=== PATIENT | male | born 1990 | race American Indian/Alaskan Native ===

== ENCOUNTER 2022-04-29 04:42 | Emergency (ER) | payer OTHER, MEDICAID ==
[2022-04-29] MEDS ORDERED: Cephalexin 500 MG Cap PO ONE (04:58)
[2022-04-29] MEDS ORDERED: Bacitracin Oint 1 GM U/D Packet TOP ONE (04:58)
[2022-04-29] MEDS ORDERED: Diphtheria,Pertussis(Acell),Tetanus Vaccine 0.5 ML Syringe IM ONE (04:59)
== END 2022-04-29 05:31 ==
LOC: DL.ED 04:42
DX: S81.811A Laceration without foreign body, right lower leg, initial encounter (principal); Z23 Encounter for immunization; V29.9XXA Motorcycle rider (driver) (passenger) injured in unspecified traffic accident, initial encounter; Y93.55 Activity, bike riding
CPT/HCPCS: 90471; 90715; 99283; A9270

== ENCOUNTER 2022-06-16 16:32 | Emergency (ER) | payer MEDICAID ==
[2022-06-16] MEDS: Pantoprazole 40 MG Vial IVPUSH ONE (17:08)
[2022-06-16] MEDS: Ondansetron 4 MG/2 ML SDV IV ONE (17:09)
[2022-06-16] MEDS: Sodium Chloride 0.9% 10 ML Syringe FLUSH PRN (17:09)
[2022-06-16] MEDS: MVI, Adult with Vitamin K 10 ML, Thiamine 100 MG, Folic Acid 1 MG in Lactated Ringers 1... IV ONE ×4 (17:11)
[2022-06-16 17:35] LABS: PTT,PARTIAL THROMBOPLSTIN TIME 23.2 SEC (22.0-34.0)
[2022-06-16 17:38] LABS: ANION GAP 16.9 mEq/L (7-13)
[2022-06-16 17:57] LABS: CORONAVIRUS COVID-19 NAA NEGATIVE (NEGATIVE); RESPIRATORY SYNCYTIAL VIR NAA NEGATIVE (NEGATIVE)
[2022-06-16 18:03] LABS: AMPHETAMINES,URINE NEGATIVE (NEGATIVE); BARBITURATES,URINE NEGATIVE (NEGATIVE); BENZODIAZEPINE,URINE NEGATIVE (NEGATIVE); MDMA (ECSTASY), URINE NEGATIVE (NEGATIVE); METHADONE,URINE NEGATIVE (NEGATIVE); METHAMPHETAMINES,URINE POSITIVE (NEGATIVE); OPIATES,URINE NEGATIVE (NEGATIVE); OXYCODONE,URINE NEGATIVE (NEGATIVE); PHENCYCLIDINE,URINE NEGATIVE (NEGATIVE); TCA,URINE NEGATIVE (NEGATIVE)
[2022-06-16] MEDS: Sodium Chloride 0.9% 1,000 ML IV ONE (18:36)
[2022-06-16] MEDS ORDERED: Sodium Chloride 0.9% 1,000 ML IV ONE (18:40)
== END 2022-06-16 18:50 | disposition left against medical advice (07) ==
LOC: DL.ED 16:32
DX: F10.129 Alcohol abuse with intoxication, unspecified (principal); Y90.8 Blood alcohol level of 240 mg/100 ml or more; S60.414A Abrasion of right ring finger, initial encounter; F15.10 Other stimulant abuse, uncomplicated; Z20.822 Contact with and (suspected) exposure to COVID-19
CPT/HCPCS: 0241U; 36415; 80053; 80143; 80179; 80305; 80307; 81001; 82150; 83690; 83735; 85025; 85610; 85730; 96365; 96375; 99284; C9113; J2405; J3411; J3490; J7030; J7120

== ENCOUNTER 2022-06-16 23:46 | Emergency (ER) | payer MEDICAID ==
[2022-06-16] MEDS ORDERED: Sodium Chloride 0.9% 1,000 ML IV ONE (23:52)
[2022-06-17 00:27] LABS: ANION GAP 18.3 mEq/L (7-13); CHLORIDE,CL 111 mmol/L (98-107); SODIUM,NA 150 mmol/L (136-145)
[2022-06-17 00:37] LABS: ACETAMINOPHEN 0 ug/mL (10-30 (Therapeutic)); ESTIMATED GFR 108 mL/min (>=60)
[2022-06-17 01:23] LABS: AMPHETAMINES,URINE NEGATIVE (NEGATIVE); BARBITURATES,URINE NEGATIVE (NEGATIVE); BENZODIAZEPINE,URINE NEGATIVE (NEGATIVE); MDMA (ECSTASY), URINE NEGATIVE (NEGATIVE); METHADONE,URINE NEGATIVE (NEGATIVE); METHAMPHETAMINES,URINE POSITIVE (NEGATIVE); OPIATES,URINE NEGATIVE (NEGATIVE); OXYCODONE,URINE NEGATIVE (NEGATIVE); PHENCYCLIDINE,URINE NEGATIVE (NEGATIVE); TCA,URINE NEGATIVE (NEGATIVE)
== END 2022-06-17 05:50 | disposition home or self-care (01) ==
LOC: DL.ED 23:46
DX: F10.10 Alcohol abuse, uncomplicated (principal); F15.10 Other stimulant abuse, uncomplicated; Y90.8 Blood alcohol level of 240 mg/100 ml or more
CPT/HCPCS: 36415; 80053; 80143; 80179; 80305; 80307; 83605; 83735; 85025; 96360; 99285; J7030

== ENCOUNTER 2022-07-13 20:46 | Emergency (ER) | payer MEDICAID ==
[2022-07-13 21:03] LABS: ANION GAP 14.4 mEq/L (7-13); CHLORIDE,CL 107 mmol/L (98-107); SODIUM,NA 145 mmol/L (136-145)
[2022-07-13 21:04] LABS: ESTIMATED GFR 123 mL/min (>=60)
[2022-07-13 21:38] LABS: AMPHETAMINES,URINE NEGATIVE (NEGATIVE); BARBITURATES,URINE NEGATIVE (NEGATIVE); BENZODIAZEPINE,URINE NEGATIVE (NEGATIVE); MDMA (ECSTASY), URINE NEGATIVE (NEGATIVE); METHADONE,URINE NEGATIVE (NEGATIVE); METHAMPHETAMINES,URINE NEGATIVE (NEGATIVE); OPIATES,URINE NEGATIVE (NEGATIVE); OXYCODONE,URINE NEGATIVE (NEGATIVE); PHENCYCLIDINE,URINE NEGATIVE (NEGATIVE); TCA,URINE NEGATIVE (NEGATIVE)
== END 2022-07-13 21:19 ==
LOC: DL.ED 20:46
DX: S00.83XA Contusion of other part of head, initial encounter (principal); F10.929 Alcohol use, unspecified with intoxication, unspecified; R40.1 Stupor; Y90.8 Blood alcohol level of 240 mg/100 ml or more; W18.09XA Striking against other object with subsequent fall, initial encounter
CPT/HCPCS: 36415; 80053; 80305-QW; 80307; 81001; 82150; 83690; 85025; 85610; 86850; 86900; 86901; 93005; 99285

== ENCOUNTER 2023-01-21 11:29 | Inpatient (IN) | payer MEDICAID ==
[2023-01-21] MEDS ORDERED: cefTRIAXone 2 GM Vial IVPUSH ONE (12:15)
[2023-01-21] MEDS ORDERED: Sodium Chloride 0.9% 1,000 ML IV ONE ×2 (12:15→12:16)
[2023-01-21] MEDS ORDERED: Sodium Chloride 0.9% 10 ML Syringe FLUSH PRN (12:15)
[2023-01-21] MEDS ORDERED: Azithromycin 500 MG in Sodium Chloride 0.9% 250 ML IV ONE (12:16)
[2023-01-21] MEDS ORDERED: Sodium Chloride 0.9% 500 ML IV SCH (12:30)
[2023-01-21 12:52] LABS: CHLORIDE,CL 93 mmol/L (98-107); SODIUM,NA 130 mmol/L (136-145)
[2023-01-21 13:11] LABS: ESTIMATED GFR 89 mL/min (>=60)
[2023-01-21] MEDS ORDERED: Iopamidol 755 Mg/ML 100 ML Bottle IVPUSH ONE (13:18)
[2023-01-21 13:59] LABS: AMPHETAMINES,URINE POSITIVE (NEGATIVE); BARBITURATES,URINE NEGATIVE (NEGATIVE); BENZODIAZEPINE,URINE NEGATIVE (NEGATIVE); MDMA (ECSTASY), URINE NEGATIVE (NEGATIVE); METHADONE,URINE NEGATIVE (NEGATIVE); METHAMPHETAMINES,URINE POSITIVE (NEGATIVE); OPIATES,URINE NEGATIVE (NEGATIVE); OXYCODONE,URINE NEGATIVE (NEGATIVE); PHENCYCLIDINE,URINE NEGATIVE (NEGATIVE); TCA,URINE NEGATIVE (NEGATIVE)
[2023-01-21] MEDS ORDERED: Acetaminophen 500 MG Tab PO ONE (14:48)
[2023-01-21] MEDS ORDERED: Ketorolac 30 MG/ML SDV IVPUSH ONE (14:48)
[2023-01-21] MEDS ORDERED: LORazepam 2 MG/ML SDV IVPUSH ONE (15:12)
[2023-01-21 15:29] LABS: CORONAVIRUS COVID-19 NAA NEGATIVE (NEGATIVE); RESPIRATORY SYNCYTIAL VIR NAA NEGATIVE (NEGATIVE)
[2023-01-21] MEDS ORDERED: oxyCODONE 5 MG Tab PO PRN (16:04)
[2023-01-21] MEDS ORDERED: Docusate Sodium 100 MG Cap PO PRN (16:04)
[2023-01-21] MEDS ORDERED: Morphine 2 MG/ML SYRINGE IVPUSH PRN (16:04)
[2023-01-21] MEDS ORDERED: Acetaminophen 325 MG Tab PO PRN (16:04)
[2023-01-21] MEDS ORDERED: Ondansetron 4 MG Tab.DIS PO PRN (16:04)
[2023-01-21] MEDS ORDERED: LORazepam 2 MG/ML SDV IV PRN (16:10)
[2023-01-21] MEDS: Sodium Chloride 0.9% 1,000 ML IV SCH (19:13)
[2023-01-21] MEDS: Thiamine 100 MG Tab PO SCH (20:15)
[2023-01-21] MEDS: Folic Acid 1 MG Tab PO SCH (20:15)
[2023-01-21] MEDS: Multivitamin, Childrens Tab.Chew PO SCH (20:15)
[2023-01-21] MEDS: Albuterol/Ipratropium 3.0-0.5 MG/3 ML Neb Soln NEB SCH (21:36)
[2023-01-21] MEDS ORDERED: LORazepam 1 MG Tab PO PRN (23:14)
[2023-01-21] MEDS ORDERED: LORazepam 0.5 MG Tab PO PRN (23:29)
[2023-01-22] MEDS: Albuterol/Ipratropium 3.0-0.5 MG/3 ML Neb Soln NEB SCH ×5 (00:02→18:15)
[2023-01-22] MEDS: Sodium Chloride 0.9% 1,000 ML IV SCH (03:08)
[2023-01-22] MEDS: LORazepam 1 MG Tab PO PRN ×4 (03:13→20:24)
[2023-01-22 06:25] LABS: ANION GAP 10.6 mEq/L (7-13)
[2023-01-22] MEDS: Nicotine 21 MG/24 Hr Patch TRDERM SCH (08:23)
[2023-01-22] MEDS: Enoxaparin 40 MG/0.4 ML Syringe SUBCUT SCH (08:24)
[2023-01-22] MEDS: cefTRIAXone 1 GM Vial IVPUSH SCH (12:18)
[2023-01-22] MEDS: Azithromycin 500 MG in Sodium Chloride 0.9% 250 ML IV SCH (12:21)
[2023-01-22] MEDS: Thiamine 100 MG Tab PO SCH (20:23)
[2023-01-22] MEDS: Folic Acid 1 MG Tab PO SCH (20:24)
[2023-01-22] MEDS: Multivitamin, Childrens Tab.Chew PO SCH (20:24)
[2023-01-22] MEDS ORDERED: guaiFENesin/Dextromethorphan 100-10 MG/5 ML Soln 5 ML Cup PO PRN (23:58)
[2023-01-23] MEDS: Albuterol/Ipratropium 3.0-0.5 MG/3 ML Neb Soln NEB SCH ×4 (00:17→18:29)
[2023-01-23 06:30] LABS: ANION GAP 13.7 mEq/L (7-13)
[2023-01-23] MEDS: Nicotine 21 MG/24 Hr Patch TRDERM SCH (08:44)
[2023-01-23] MEDS: Enoxaparin 40 MG/0.4 ML Syringe SUBCUT SCH (08:47)
[2023-01-23] MEDS: Azithromycin 500 MG in Sodium Chloride 0.9% 250 ML IV SCH (12:29)
[2023-01-23] MEDS: cefTRIAXone 1 GM Vial IVPUSH SCH (12:31)
[2023-01-23] MEDS: LORazepam 1 MG Tab PO PRN (12:39)
[2023-01-23] MEDS ORDERED: ALPRAZolam 0.5 MG Tab PO ONE (16:57)
[2023-01-23] MEDS: Folic Acid 1 MG Tab PO SCH (20:05)
[2023-01-23] MEDS: Multivitamin, Childrens Tab.Chew PO SCH (20:05)
[2023-01-23] MEDS: Thiamine 100 MG Tab PO SCH (20:05)
[2023-01-24] MEDS: Albuterol/Ipratropium 3.0-0.5 MG/3 ML Neb Soln NEB SCH ×3 (00:18→13:16)
[2023-01-24] MEDS: LORazepam 1 MG Tab PO PRN ×3 (00:18→12:34)
[2023-01-24 06:33] LABS: ANION GAP 13.9 mEq/L (7-13)
[2023-01-24] MEDS: Enoxaparin 40 MG/0.4 ML Syringe SUBCUT SCH (08:25)
[2023-01-24] MEDS: Nicotine 21 MG/24 Hr Patch TRDERM SCH (08:28)
[2023-01-24] MEDS ORDERED: Acetaminophen/Butalbital/Caffeine 325-50-40 MG Tab PO PRN (10:27)
[2023-01-24] MEDS: cefTRIAXone 1 GM Vial IVPUSH SCH (11:57)
[2023-01-24] MEDS: Azithromycin 500 MG in Sodium Chloride 0.9% 250 ML IV SCH (11:58)
[2023-01-24] MEDS ORDERED: Topiramate 25 MG Tab PO ONE (12:15)
[2023-01-24] MEDS ORDERED: QUEtiapine 25 MG Tab PO SCH (21:00)
[2023-01-24] MEDS ORDERED: Topiramate 25 MG Tab PO SCH (21:00)
== END 2023-01-24 13:53 | disposition home or self-care (01) | DRG 871 ==
LOC: DL.ED 11:29 → DL.MS 15:33
PROVIDERS: ADMIT Internal Medicine; ATTEND Internal Medicine
DX: A41.9 Sepsis, unspecified organism (principal); J18.9 Pneumonia, unspecified organism; E87.1 Hypo-osmolality and hyponatremia; F10.139 Alcohol abuse with withdrawal, unspecified; F41.9 Anxiety disorder, unspecified; F17.210 Nicotine dependence, cigarettes, uncomplicated; D64.9 Anemia, unspecified; R73.9 Hyperglycemia, unspecified; E87.8 Other disorders of electrolyte and fluid balance, not elsewhere classified; R65.20 Severe sepsis without septic shock; F15.10 Other stimulant abuse, uncomplicated; Z59.00 Homelessness unspecified; Z56.0 Unemployment, unspecified
CPT/HCPCS: 0241U; 36415; 71046; 71100-LT; 71275; 80048; 80053; 80305-QW; 80307; 81003; 83605; 85025; 86140; 87040; 93005; 93010; 94640; 99232; 99238; 99285; A9270-GY; J0456; J0696; J1650; J1885; J2060; J3490; J7030; J7040; J7050; J7620-GY; Q9967

== ENCOUNTER 2023-02-09 11:05 | Emergency (ER) | payer MEDICAID ==
[2023-02-09] MEDS ORDERED: Sodium Chloride 0.9% 10 ML Syringe FLUSH PRN (11:20)
[2023-02-09] MEDS ORDERED: Ondansetron 4 MG/2 ML SDV IVPUSH ONE (11:20)
[2023-02-09] MEDS ORDERED: MVI, Adult with Vitamin K 10 ML, Thiamine 100 MG, Folic Acid 1 MG in Lactated Ringers 1... IV ONE ×4 (11:20)
[2023-02-09] MEDS ORDERED: LORazepam 2 MG/ML SDV IVPUSH ONE (11:30)
[2023-02-09 11:34] LABS: BASOPHILS PERCENT AUTO 1.4 % (0.0-1.0); EOSINOPHILS PERCENT AUTO 4.1 % (1.0-3.0); HEMATOCRIT 43.8 % (40.0-54.0); LYMPHOCYTES PERCENT AUTO 41.4 % (20.5-50.1); MEAN CORPUSCULAR HEMOGLOBIN 31.7 pg (27.0-34.0); MEAN CORPUSCULAR HGB CONC 34.2 g/dL (33.0-35.0); MEAN CORPUSCULAR VOLUME 92.6 fL (80-100); MONOCYTES PERCENT AUTO 9.5 % (2-8); NEUTROPHILS PERCENT AUTO 43.6 % (42.2-75.2); PLATELET COUNT,PLT 262 10^3/uL (150-450); RED BLOOD CELL COUNT 4.73 10^6/uL (4.6-6.2); WHITE BLOOD CELL COUNT,WBC 4.4 10^3/uL (5.0-10.0)
[2023-02-09 11:36] LABS: APPEARANCE,URINE CLEAR (CLEAR); BILIRUBIN,URINE NEGATIVE (NEGATIVE); COLOR,URINE YELLOW (YELLOW); GLUCOSE,URINE NEGATIVE (NEGATIVE); KETONES,URINE NEGATIVE (NEGATIVE); LEUKOCYTE ESTERASE,URINE NEGATIVE (NEGATIVE); NITRITE,URINE NEGATIVE (NEGATIVE); OCCULT BLOOD,URINE NEGATIVE (NEGATIVE); PROTEIN,URINE NEGATIVE (NEGATIVE)
[2023-02-09 11:41] LABS: AMPHETAMINES,URINE POSITIVE (NEGATIVE); BARBITURATES,URINE NEGATIVE (NEGATIVE); BENZODIAZEPINE,URINE NEGATIVE (NEGATIVE); MDMA (ECSTASY), URINE NEGATIVE (NEGATIVE); METHADONE,URINE NEGATIVE (NEGATIVE); METHAMPHETAMINES,URINE POSITIVE (NEGATIVE); OPIATES,URINE NEGATIVE (NEGATIVE); OXYCODONE,URINE NEGATIVE (NEGATIVE); PHENCYCLIDINE,URINE NEGATIVE (NEGATIVE); TCA,URINE NEGATIVE (NEGATIVE)
[2023-02-09 11:57] LABS: ALBUMIN 3.8 g/dL (3.4-5.0); ANION GAP 14.9 mEq/L (7-13); BILIRUBIN TOTAL 0.4 mg/dL (0.2-1.0); BUN/CREATININE RATIO 19.8 (No establ ref range); CALCIUM 8.5 mg/dL (8.5-10.1); CREATININE 0.81 mg/dL (0.70-1.30); EST CRCL DRUG DOSING (CG) 129.71 mL/min; MAGNESIUM 1.9 mg/dL (1.8-2.4); POTASSIUM,K 3.9 mmol/L (3.5-5.1); PROTEIN TOTAL,TP 7.6 g/dL (6.4-8.2)
== END 2023-02-09 12:39 ==
LOC: DL.ED 11:05
DX: F10.129 Alcohol abuse with intoxication, unspecified (principal); F15.10 Other stimulant abuse, uncomplicated; R74.8 Abnormal levels of other serum enzymes; J45.909 Unspecified asthma, uncomplicated; Y90.5 Blood alcohol level of 100-119 mg/100 ml
CPT/HCPCS: 36415; 80053; 80305; 80307; 81003; 83735; 85025; 96365; 96375; 99284; J2060; J2405; J3411; J7120; J3490

== ENCOUNTER 2023-04-16 07:04 | Emergency (ER) | payer BC, MEDICAID ==
[2023-04-16] MEDS ORDERED: Sodium Chloride 0.9% 10 ML Syringe FLUSH PRN (07:26)
[2023-04-16] MEDS ORDERED: Lidocaine 1% 30 ML SDV INJECT ONE (07:27)
[2023-04-16] MEDS ORDERED: diphenhydrAMINE 50 MG/ML SDV IVPUSH ONE (07:28)
[2023-04-16] MEDS ORDERED: Ondansetron 4 MG/2 ML SDV IV ONE (07:28)
[2023-04-16] MEDS ORDERED: Sodium Chloride 0.9% 1,000 ML IV ONE (07:28)
[2023-04-16] MEDS ORDERED: HYDROmorphone 1 MG/ML Syringe IVPUSH ONE (07:29)
[2023-04-16] MEDS ORDERED: Clindamycin in 0.9 % Sod Chlor 900 MG in Premix Bag 1 BAG IV ONE ×2 (07:32)
[2023-04-16 07:46] LABS: BASOPHILS PERCENT AUTO 0.5 % (0.0-1.0); EOSINOPHILS PERCENT AUTO 1.3 % (1.0-3.0); HEMOGLOBIN 13.7 g/dL (14.0-18.0); LYMPHOCYTES PERCENT AUTO 22.7 % (20.5-50.1); MEAN CORPUSCULAR HEMOGLOBIN 32.4 pg (27.0-34.0); MEAN CORPUSCULAR HGB CONC 33.4 g/dL (33.0-35.0); MEAN CORPUSCULAR VOLUME 96.9 fL (80-100); MONOCYTES PERCENT AUTO 8.8 % (2-8); NEUTROPHILS PERCENT AUTO 66.7 % (42.2-75.2); PLATELET COUNT,PLT 274 10^3/uL (150-450); RED BLOOD CELL COUNT 4.23 10^6/uL (4.6-6.2); WHITE BLOOD CELL COUNT,WBC 10.9 10^3/uL (5.0-10.0)
[2023-04-16 08:06] LABS: ALBUMIN 3.3 g/dL (3.4-5.0); ANION GAP 14.7 mEq/L (7-13); BILIRUBIN TOTAL 0.2 mg/dL (0.2-1.0); BUN/CREATININE RATIO 12.6 (No establ ref range); C-REACTIVE PROTEIN 7.7 mg/dL (0.0-0.9); CALCIUM 8.7 mg/dL (8.5-10.1); CREATININE 0.95 mg/dL (0.70-1.30); EST CRCL DRUG DOSING (CG) 103.4 mL/min; POTASSIUM,K 3.7 mmol/L (3.5-5.1); PROTEIN TOTAL,TP 7.9 g/dL (6.4-8.2)
[2023-04-16 08:08] LABS: A/G RATIO 0.72
[2023-04-16 08:14] LABS: LACTIC ACID 2.2 mmol/L (0.4-2.0)
[2023-04-16] MEDS ORDERED: Take Home: Acetaminophen/HYDROcodone 325-5 MG, 5 Tab Pack PO ONE (09:21)
[2023-04-16] MEDS ORDERED: Take Home: Clindamycin HCl 150 MG, 12 Cap Pack PO ONE (09:21)
[2023-04-16] MEDS ORDERED: Take Home: Doxycycline 100 MG Cap, 4 Cap Pack PO ONE (09:21)
== END 2023-04-16 11:05 | disposition home or self-care (01) ==
LOC: DL.ED 07:04
DX: L03.317 Cellulitis of buttock (principal); L02.31 Cutaneous abscess of buttock; J45.909 Unspecified asthma, uncomplicated
CPT/HCPCS: 10061; 36415; 80053; 80307; 83605; 85025; 86140; 87040; 87070; 87077; 87186; 96365; 96366; 96367; 96375; 99283; A9270; J1170; J1200; J2405; J3370; J3490; J7030; J7040

== ENCOUNTER 2023-08-06 15:20 | Emergency (ER) | payer MEDICAID ==
[2023-08-06] MEDS ORDERED: Dexamethasone 4 MG/ML SDV IVPUSH ONE (15:47)
[2023-08-06] MEDS ORDERED: Clindamycin Phosphate in D5W 600 MG in Premix Bag 1 BAG IV ONE ×2 (15:47)
[2023-08-06] MEDS ORDERED: Sodium Chloride 0.9% 10 ML Syringe FLUSH PRN (15:47)
[2023-08-06 16:34] LABS: BASOPHILS PERCENT AUTO 0.1 % (0.0-1.0); EOSINOPHILS PERCENT AUTO 4.1 % (1.0-3.0); HEMATOCRIT 48.4 % (40.0-54.0); HEMOGLOBIN 16.7 g/dL (14.0-18.0); LYMPHOCYTES PERCENT AUTO 14.9 % (20.5-50.1); MEAN CORPUSCULAR HEMOGLOBIN 31.6 pg (27.0-34.0); MEAN CORPUSCULAR HGB CONC 34.5 g/dL (33.0-35.0); MEAN CORPUSCULAR VOLUME 91.5 fL (80-100); MONOCYTES PERCENT AUTO 6.3 % (2-8); NEUTROPHILS PERCENT AUTO 74.6 % (42.2-75.2); PLATELET COUNT,PLT 259 10^3/uL (150-450); RED BLOOD CELL COUNT 5.29 10^6/uL (4.6-6.2); WHITE BLOOD CELL COUNT,WBC 11.5 10^3/uL (5.0-10.0)
[2023-08-06 16:56] LABS: ALBUMIN 2.9 g/dL (3.4-5.0); ANION GAP 13.6 mEq/L (7-13); BILIRUBIN TOTAL 1.1 mg/dL (0.2-1.0); BUN/CREATININE RATIO 12.1 (No establ ref range); CREATININE 0.99 mg/dL (0.70-1.30); EST CRCL DRUG DOSING (CG) 105.14 mL/min; POTASSIUM,K 3.6 mmol/L (3.5-5.1); PROTEIN TOTAL,TP 6.3 g/dL (6.4-8.2)
[2023-08-06 16:57] LABS: A/G RATIO 0.85
== END 2023-08-06 17:06 | disposition left against medical advice (07) ==
LOC: DL.ED 15:20
DX: L03.317 Cellulitis of buttock (principal); L03.115 Cellulitis of right lower limb; L03.116 Cellulitis of left lower limb
CPT/HCPCS: 36415; 80053; 83605; 85025; 96365; 96375; 99283; 99283-25; J1100; J3490

== ENCOUNTER 2023-08-12 17:00 | Emergency (ER) | payer MEDICAID ==
[2023-08-12 18:36] LABS: BASOPHILS PERCENT AUTO 0.4 % (0.0-1.0); EOSINOPHILS PERCENT AUTO 1.2 % (1.0-3.0); HEMATOCRIT 42.8 % (40.0-54.0); HEMOGLOBIN 14.6 g/dL (14.0-18.0); LYMPHOCYTES PERCENT AUTO 31.7 % (20.5-50.1); MEAN CORPUSCULAR HEMOGLOBIN 31.6 pg (27.0-34.0); MEAN CORPUSCULAR HGB CONC 34.1 g/dL (33.0-35.0); MEAN CORPUSCULAR VOLUME 92.6 fL (80-100); MONOCYTES PERCENT AUTO 6.2 % (2-8); NEUTROPHILS PERCENT AUTO 60.5 % (42.2-75.2); PLATELET COUNT,PLT 219 10^3/uL (150-450); RED BLOOD CELL COUNT 4.62 10^6/uL (4.6-6.2); WHITE BLOOD CELL COUNT,WBC 7.3 10^3/uL (5.0-10.0)
[2023-08-12 18:40] LABS: APPEARANCE,URINE CLEAR (CLEAR); BILIRUBIN,URINE NEGATIVE (NEGATIVE); COLOR,URINE YELLOW (YELLOW); GLUCOSE,URINE NEGATIVE (NEGATIVE); KETONES,URINE NEGATIVE (NEGATIVE); LEUKOCYTE ESTERASE,URINE NEGATIVE (NEGATIVE); NITRITE,URINE NEGATIVE (NEGATIVE); OCCULT BLOOD,URINE NEGATIVE (NEGATIVE); PROTEIN,URINE NEGATIVE (NEGATIVE); UROBILINOGEN,URINE 0.2 mg/dL (0.2-1.0)
[2023-08-12 18:47] LABS: AMPHETAMINES,URINE NEGATIVE (NEGATIVE); BARBITURATES,URINE NEGATIVE (NEGATIVE); BENZODIAZEPINE,URINE NEGATIVE (NEGATIVE); MDMA (ECSTASY), URINE NEGATIVE (NEGATIVE); METHADONE,URINE NEGATIVE (NEGATIVE); METHAMPHETAMINES,URINE NEGATIVE (NEGATIVE); OPIATES,URINE NEGATIVE (NEGATIVE); OXYCODONE,URINE NEGATIVE (NEGATIVE); PHENCYCLIDINE,URINE NEGATIVE (NEGATIVE); TCA,URINE NEGATIVE (NEGATIVE)
[2023-08-12 18:55] LABS: ALBUMIN 3.1 g/dL (3.4-5.0); BILIRUBIN TOTAL 0.2 mg/dL (0.2-1.0); BUN/CREATININE RATIO 10.3 (No establ ref range); CALCIUM 7.8 mg/dL (8.5-10.1); CREATININE 0.78 mg/dL (0.70-1.30); EST CRCL DRUG DOSING (CG) 126.71 mL/min
[2023-08-12 18:58] LABS: A/G RATIO 0.79
== END 2023-08-12 20:23 | disposition left against medical advice (07) ==
LOC: DL.ED 17:00
DX: S80.01XA Contusion of right knee, initial encounter (principal); S80.02XA Contusion of left knee, initial encounter; S90.812A Abrasion, left foot, initial encounter; S90.811A Abrasion, right foot, initial encounter; J45.909 Unspecified asthma, uncomplicated
CPT/HCPCS: 36415; 80053; 80305-QW; 80307; 81003; 85025; 99282; 99284

== ENCOUNTER 2023-08-18 15:59 | Emergency (ER) | payer MEDICAID, OTHER ==
[2023-08-18 16:35] LABS: AMPHETAMINES,URINE NEGATIVE (NEGATIVE); BARBITURATES,URINE NEGATIVE (NEGATIVE); BENZODIAZEPINE,URINE NEGATIVE (NEGATIVE); MDMA (ECSTASY), URINE NEGATIVE (NEGATIVE); METHADONE,URINE NEGATIVE (NEGATIVE); METHAMPHETAMINES,URINE NEGATIVE (NEGATIVE); OPIATES,URINE NEGATIVE (NEGATIVE); OXYCODONE,URINE NEGATIVE (NEGATIVE); PHENCYCLIDINE,URINE NEGATIVE (NEGATIVE); TCA,URINE NEGATIVE (NEGATIVE)
[2023-08-18] MEDS ORDERED: Sodium Chloride 0.9% 10 ML Syringe FLUSH PRN (16:44)
[2023-08-18] MEDS ORDERED: Thiamine 100 MG in Sodium Chloride 0.9% 100 ML IV ONE (16:46)
[2023-08-18] MEDS ORDERED: Sodium Chloride 0.9% 1,000 ML IV ONE ×2 (16:46)
== END 2023-08-18 19:45 ==
LOC: DL.ED 15:59
DX: F10.929 Alcohol use, unspecified with intoxication, unspecified (principal)
CPT/HCPCS: 36415; 80305-QW; 80307; 96365; 99283; 99284-25; J3411; J3490; J7030

== ENCOUNTER 2024-05-25 18:49 | Emergency (ER) | payer MEDICAID ==
[2024-05-25 19:33] LABS: BASOPHILS PERCENT AUTO 0.3 % (0.0-1.0); HEMATOCRIT 41.6 % (40.0-54.0); LYMPHOCYTES PERCENT AUTO 18.3 % (20.5-50.1); MEAN CORPUSCULAR HGB CONC 33.7 g/dL (33.0-35.0); MEAN CORPUSCULAR VOLUME 95.2 fL (80-100); MONOCYTES PERCENT AUTO 9.6 % (2-8); NEUTROPHILS PERCENT AUTO 70.8 % (42.2-75.2); PLATELET COUNT,PLT 227 10^3/uL (150-450); RED BLOOD CELL COUNT 4.37 10^6/uL (4.6-6.2); WHITE BLOOD CELL COUNT,WBC 7.8 10^3/uL (5.0-10.0)
[2024-05-25 20:00] LABS: LACTIC ACID 1.3 mmol/L (0.4-2.0)
[2024-05-25] MEDS: Ketorolac 30 MG/ML SDV IVPUSH ONE (20:01)
[2024-05-25] MEDS: Bacitracin/Neomycin/Polymyxin B Oint 28.4 GM Tube TOP ONE (20:03)
[2024-05-25 20:07] LABS: A/G RATIO 0.65; ANION GAP 13.8 mEq/L (7-13); BILIRUBIN TOTAL 0.2 mg/dL (0.2-1.0); BUN/CREATININE RATIO 19.8 (No establ ref range); CALCIUM 8.6 mg/dL (8.5-10.1); CREATININE 0.91 mg/dL (0.70-1.30); EST CRCL DRUG DOSING (CG) 113.3 mL/min; POTASSIUM,K 3.8 mmol/L (3.5-5.1); PROTEIN TOTAL,TP 7.6 g/dL (6.4-8.2)
[2024-05-25] MEDS: cefTRIAXone 1 GM Vial IVPUSH ONE (20:30)
== END 2024-05-25 21:02 | disposition home or self-care (01) ==
LOC: DL.ED 18:49
DX: L03.116 Cellulitis of left lower limb (principal); R94.5 Abnormal results of liver function studies; J45.909 Unspecified asthma, uncomplicated; F17.210 Nicotine dependence, cigarettes, uncomplicated
CPT/HCPCS: 36415; 73630; 80053; 83605; 85025; 87070; 96374; 96375; 99283; A9270; J0696; J1885; 87077; 87186

== ENCOUNTER 2024-06-21 16:38 | Emergency (ER) | payer MEDICAID ==
[~2024-06-21 16:38] MED LIST: Sodium Chloride 0.9% 10 ML Syringe FLUSH PRN
[2024-06-21] MEDS: Ketamine 500 mg/10 ML MDV IV ONE (17:04)
[2024-06-21 17:09] LABS: BASOPHILS PERCENT AUTO 0.9 % (0.0-1.0); EOSINOPHILS PERCENT AUTO 0.7 % (1.0-3.0); HEMATOCRIT 40.5 % (40.0-54.0); HEMOGLOBIN 13.5 g/dL (14.0-18.0); LYMPHOCYTES PERCENT AUTO 24.3 % (20.5-50.1); MEAN CORPUSCULAR HEMOGLOBIN 32.3 pg (27.0-34.0); MEAN CORPUSCULAR HGB CONC 33.3 g/dL (33.0-35.0); MEAN CORPUSCULAR VOLUME 96.9 fL (80-100); MONOCYTES PERCENT AUTO 4.8 % (2-8); NEUTROPHILS PERCENT AUTO 69.3 % (42.2-75.2); PLATELET COUNT,PLT 227 10^3/uL (150-450); RED BLOOD CELL COUNT 4.18 10^6/uL (4.6-6.2); WHITE BLOOD CELL COUNT,WBC 5.4 10^3/uL (5.0-10.0)
[2024-06-21] MEDS: Ketamine 500 mg/10 ML MDV ONE (17:16)
[2024-06-21 18:04] LABS: ALBUMIN 3.2 g/dL (3.4-5.0); ANION GAP 13.6 mEq/L (7-13); BILIRUBIN TOTAL 0.2 mg/dL (0.2-1.0); BUN/CREATININE RATIO 12.6 (No establ ref range); CALCIUM 7.9 mg/dL (8.5-10.1); CREATININE 0.87 mg/dL (0.70-1.30); EST CRCL DRUG DOSING (CG) 118.51 mL/min; POTASSIUM,K 3.6 mmol/L (3.5-5.1); PROTEIN TOTAL,TP 7.2 g/dL (6.4-8.2)
[2024-06-21 18:06] LABS: A/G RATIO 0.8
== END 2024-06-21 22:41 | disposition home or self-care (01) ==
LOC: DL.ED 16:38
DX: F10.929 Alcohol use, unspecified with intoxication, unspecified (principal)
CPT/HCPCS: 36415; 70450; 72125; 80053; 80307; 85025; 96374; 99283; 99285; J3490

== ENCOUNTER 2024-06-27 09:44 | Emergency (ER) | payer MEDICAID ==
[2024-06-27] MEDS ORDERED: Sodium Chloride 0.9% 10 ML Syringe FLUSH PRN (10:26)
[2024-06-27] MEDS: LORazepam 2 MG/ML SDV IVPUSH ONE ×3 (10:38→11:06)
[2024-06-27 10:40] LABS: BASOPHILS PERCENT AUTO 0.9 % (0.0-1.0); EOSINOPHILS PERCENT AUTO 1.9 % (1.0-3.0); HEMATOCRIT 40.2 % (40.0-54.0); HEMOGLOBIN 13.3 g/dL (14.0-18.0); LYMPHOCYTES PERCENT AUTO 42.5 % (20.5-50.1); MEAN CORPUSCULAR HEMOGLOBIN 32.6 pg (27.0-34.0); MEAN CORPUSCULAR HGB CONC 33.1 g/dL (33.0-35.0); MEAN CORPUSCULAR VOLUME 98.5 fL (80-100); MONOCYTES PERCENT AUTO 11.9 % (2-8); NEUTROPHILS PERCENT AUTO 42.8 % (42.2-75.2); PLATELET COUNT,PLT 195 10^3/uL (150-450); RED BLOOD CELL COUNT 4.08 10^6/uL (4.6-6.2); WHITE BLOOD CELL COUNT,WBC 6.4 10^3/uL (5.0-10.0)
[2024-06-27 10:51] LABS: ALBUMIN 3.1 g/dL (3.4-5.0); ANION GAP 15.7 mEq/L (7-13); BILIRUBIN TOTAL 0.3 mg/dL (0.2-1.0); BUN/CREATININE RATIO 13.3 (No establ ref range); CALCIUM 7.6 mg/dL (8.5-10.1); CREATININE 0.75 mg/dL (0.70-1.30); MAGNESIUM 1.8 mg/dL (1.8-2.4); POTASSIUM,K 3.7 mmol/L (3.5-5.1); PROTEIN TOTAL,TP 7.1 g/dL (6.4-8.2)
[2024-06-27 11:02] LABS: INR 0.9 (0.9-1.2); PROTHROMBIN TIME 8.9 SEC (9.0-12.0); PTT,PARTIAL THROMBOPLSTIN TIME 23.4 SEC (22.0-34.0)
[2024-06-27 11:04] LABS: APPEARANCE,URINE CLEAR (CLEAR); BILIRUBIN,URINE NEGATIVE (NEGATIVE); COLOR,URINE YELLOW (YELLOW); GLUCOSE,URINE NEGATIVE (NEGATIVE); KETONES,URINE NEGATIVE (NEGATIVE); LEUKOCYTE ESTERASE,URINE NEGATIVE (NEGATIVE); NITRITE,URINE NEGATIVE (NEGATIVE); OCCULT BLOOD,URINE NEGATIVE (NEGATIVE); PH,URINE 5.5 (5.0-9.0); PROTEIN,URINE NEGATIVE (NEGATIVE); UROBILINOGEN,URINE 0.2 mg/dL (0.2-1.0)
[2024-06-27 11:08] LABS: MDMA (ECSTASY), URINE NEGATIVE (NEGATIVE); METHADONE,URINE NEGATIVE (NEGATIVE); METHAMPHETAMINES,URINE NEGATIVE (NEGATIVE); OPIATES,URINE NEGATIVE (NEGATIVE)
[2024-06-27 11:09] LABS: A/G RATIO 0.78
[2024-06-27 11:09] LABS: AMPHETAMINES,URINE NEGATIVE (NEGATIVE); BARBITURATES,URINE NEGATIVE (NEGATIVE); BENZODIAZEPINE,URINE NEGATIVE (NEGATIVE); OXYCODONE,URINE NEGATIVE (NEGATIVE); PHENCYCLIDINE,URINE NEGATIVE (NEGATIVE); TCA,URINE NEGATIVE (NEGATIVE)
[2024-06-27] MEDS: Midazolam 1 MG/ML 2 ML SDV IVPUSH ONE (11:14)
[2024-06-27] MEDS ORDERED: Midazolam 1 MG/ML 2 ML SDV ONE (11:15)
[2024-06-27] MEDS: propofoL 100 ML IV SCH (11:35)
[2024-06-27] MEDS: fentaNYL 100 MCG/2 ML SDV IVPUSH ONE (11:40)
[2024-06-27] MEDS: Sodium Chloride 0.9% 1,000 ML IV ONE (11:47)
[2024-06-27] MEDS: Midazolam 1 MG/ML 2 ML SDV ONE (12:03)
[2024-06-27] MEDS: fentaNYL 100 MCG/2 ML SDV ONE (14:23)
[2024-06-27] MEDS: LORazepam 2 MG/ML SDV ONE (18:39)
== END 2024-06-27 15:40 ==
LOC: DL.ED 09:44
DX: S02.2XXA Fracture of nasal bones, initial encounter for closed fracture (principal); S09.93XA Unspecified injury of face, initial encounter; R40.1 Stupor; H11.32 Conjunctival hemorrhage, left eye; F10.929 Alcohol use, unspecified with intoxication, unspecified; W50.1XXA Accidental kick by another person, initial encounter
CPT/HCPCS: 31500; 36415; 51702; 70450; 70486; 71045; 72125; 80053; 80305-QW; 80307; 81003; 83690; 83735; 85025; 85610; 85730; 96365; 96366; 96368; 96375; 96376; 99285; 99285-25; J2060; J2250; J2704; J3010; J7030

== ENCOUNTER 2024-07-12 01:09 | Emergency (ER) | payer MEDICAID, OTHER ==
[2024-07-12] MEDS: Gentamicin 0.3% Ophth Soln 5 ML Bottle EYEBOTH ONE (00:25)
[2024-07-12] MEDS ORDERED: Acetaminophen 500 MG Tab PO ONE (01:10)
== END 2024-07-12 01:16 | disposition home or self-care (01) ==
LOC: DL.ED 01:09
DX: S00.11XA Contusion of right eyelid and periocular area, initial encounter (principal); J45.909 Unspecified asthma, uncomplicated; F17.210 Nicotine dependence, cigarettes, uncomplicated; Z86.16 Personal history of COVID-19; W22.8XXA Striking against or struck by other objects, initial encounter
CPT/HCPCS: 70450; 70486; 99284; A9270

== ENCOUNTER 2024-07-24 14:46 | Emergency (ER) | payer MEDICAID, OTHER | END 2024-07-24 14:53 | LOC: DL.ED 14:46 | DX: F10.90 Alcohol use, unspecified, uncomplicated (principal); J45.909 Unspecified asthma, uncomplicated | CPT/HCPCS: 99284 ==

== ENCOUNTER 2024-08-02 18:56 | Emergency (ER) | payer MEDICAID | END 2024-08-02 19:11 | LOC: DL.ED 18:56 | DX: F10.920 Alcohol use, unspecified with intoxication, uncomplicated (principal); J45.909 Unspecified asthma, uncomplicated | CPT/HCPCS: 99282; 99283 ==

== ENCOUNTER 2024-10-23 22:07 | Emergency (ER) | payer MEDICAID ==
[2024-10-23] MEDS: Ketorolac 30 MG/ML SDV IM ONE (22:36)
[2024-10-23 22:48] LABS: BASOPHILS PERCENT AUTO 0.4 % (0.0-1.0); EOSINOPHILS PERCENT AUTO 0.9 % (1.0-3.0); HEMATOCRIT 39.6 % (40.0-54.0); HEMOGLOBIN 13.4 g/dL (14.0-18.0); LYMPHOCYTES PERCENT AUTO 37.2 % (20.5-50.1); MEAN CORPUSCULAR HEMOGLOBIN 30.7 pg (27.0-34.0); MEAN CORPUSCULAR HGB CONC 33.8 g/dL (33.0-35.0); MEAN CORPUSCULAR VOLUME 90.6 fL (80-100); MONOCYTES PERCENT AUTO 5.9 % (2-8); NEUTROPHILS PERCENT AUTO 55.6 % (42.2-75.2); PLATELET COUNT,PLT 233 10^3/uL (150-450); RED BLOOD CELL COUNT 4.37 10^6/uL (4.6-6.2); WHITE BLOOD CELL COUNT,WBC 6.8 10^3/uL (5.0-10.0)
[2024-10-23 23:10] LABS: A/G RATIO 0.9; ALBUMIN 3.4 g/dL (3.4-5.0); ANION GAP 17.5 mEq/L (7-13); BILIRUBIN TOTAL 0.2 mg/dL (0.2-1.0); BUN/CREATININE RATIO 12.4 (No establ ref range); CALCIUM 8.5 mg/dL (8.5-10.1); CREATININE 0.89 mg/dL (0.70-1.30); EST CRCL DRUG DOSING (CG) 119.62 mL/min; MAGNESIUM 1.8 mg/dL (1.8-2.4); POTASSIUM,K 3.5 mmol/L (3.5-5.1); PROTEIN TOTAL,TP 7.1 g/dL (6.4-8.2)
[2024-10-23 23:15] LABS: AMPHETAMINES,URINE NEGATIVE (NEGATIVE); APPEARANCE,URINE CLEAR (CLEAR); BARBITURATES,URINE NEGATIVE (NEGATIVE); BENZODIAZEPINE,URINE NEGATIVE (NEGATIVE); BILIRUBIN,URINE NEGATIVE (NEGATIVE); COLOR,URINE YELLOW (YELLOW); GLUCOSE,URINE 100 (NEGATIVE); KETONES,URINE TRACE (NEGATIVE); LEUKOCYTE ESTERASE,URINE NEGATIVE (NEGATIVE); MDMA (ECSTASY), URINE NEGATIVE (NEGATIVE); METHADONE,URINE NEGATIVE (NEGATIVE); METHAMPHETAMINES,URINE NEGATIVE (NEGATIVE); NITRITE,URINE NEGATIVE (NEGATIVE); OCCULT BLOOD,URINE NEGATIVE (NEGATIVE); OPIATES,URINE NEGATIVE (NEGATIVE); OXYCODONE,URINE NEGATIVE (NEGATIVE); PHENCYCLIDINE,URINE NEGATIVE (NEGATIVE); PROTEIN,URINE TRACE (NEGATIVE); TCA,URINE NEGATIVE (NEGATIVE); UROBILINOGEN,URINE 0.2 mg/dL (0.2-1.0)
[2024-10-23] MEDS ORDERED: Sodium Chloride 0.9% 1,000 ML IV ONE (23:21)
[2024-10-23 23:47] LABS: BACTERIA,URINE FEW /HPF (0-FEW/HPF); EPITHELIAL CELLS,URINE FEW /HPF (NOT SEEN); HYALINE CASTS,URINE RARE; MUCUS,URINE MODERATE /LPF (NOT SEEN); WBC,URINE 0-5 /HPF (0-5/HPF)
[2024-10-23 23:56] LABS: INR 0.9 (0.9-1.2); PROTHROMBIN TIME 9.2 SEC (9.0-12.0)
== END 2024-10-23 23:35 | disposition left against medical advice (07) ==
LOC: DL.ED 22:07
DX: T33.821A Superficial frostbite of right foot, initial encounter (principal); E87.0 Hyperosmolality and hypernatremia; F10.10 Alcohol abuse, uncomplicated; R94.5 Abnormal results of liver function studies; I10 Essential (primary) hypertension; J45.909 Unspecified asthma, uncomplicated; F17.210 Nicotine dependence, cigarettes, uncomplicated; X31.XXXA Exposure to excessive natural cold, initial encounter
CPT/HCPCS: 36415; 80053; 80305; 81001; 82550; 83735; 85025; 85610; 96372; 99283; J1885; 99284

== ENCOUNTER 2024-10-24 19:37 | Emergency (ER) | payer MEDICAID, OTHER | END 2024-10-24 19:54 | disposition home or self-care (01) | LOC: DL.ED 19:37 | DX: F10.129 Alcohol abuse with intoxication, unspecified (principal); T33.821A Superficial frostbite of right foot, initial encounter; Y90.9 Presence of alcohol in blood, level not specified | CPT/HCPCS: 99284 ==

== ENCOUNTER 2024-12-16 10:26 | Emergency (ER) | payer MEDICAID, OTHER | END 2024-12-16 10:54 | disposition home or self-care (01) | LOC: DL.ED 10:26 | DX: Z02.89 Encounter for other administrative examinations (principal); J45.909 Unspecified asthma, uncomplicated | CPT/HCPCS: 99283 ==

== ENCOUNTER 2025-01-03 09:29 | Emergency (ER) | payer MEDICAID ==
[2025-01-03] MEDS: Acetaminophen/HYDROcodone 325-5 MG Tab PO ONE (10:00)
[2025-01-03] MEDS: Ketorolac 30 MG/ML SDV IVPUSH ONE (10:00)
[2025-01-03 10:16] LABS: BASOPHILS PERCENT AUTO 0.3 % (0.0-1.0); HEMOGLOBIN 14.1 g/dL (14.0-18.0); LYMPHOCYTES PERCENT AUTO 14.6 % (20.5-50.1); MEAN CORPUSCULAR HEMOGLOBIN 31.6 pg (27.0-34.0); MEAN CORPUSCULAR HGB CONC 32.8 g/dL (33.0-35.0); MEAN CORPUSCULAR VOLUME 96.4 fL (80-100); MONOCYTES PERCENT AUTO 9.1 % (2-8); PLATELET COUNT,PLT 258 10^3/uL (150-450); RED BLOOD CELL COUNT 4.46 10^6/uL (4.6-6.2); WHITE BLOOD CELL COUNT,WBC 11.4 10^3/uL (5.0-10.0)
[2025-01-03 10:39] LABS: A/G RATIO 0.9; ALBUMIN 3.5 g/dL (3.4-5.0); ANION GAP 12.8 mEq/L (7-13); BILIRUBIN TOTAL 0.4 mg/dL (0.2-1.0); BUN/CREATININE RATIO 12.6 (No establ ref range); C-REACTIVE PROTEIN 6.81 ng/dL (<=0.50); CALCIUM 8.8 mg/dL (8.5-10.1); CREATININE 0.95 mg/dL (0.70-1.30); EST CRCL DRUG DOSING (CG) 108.53 mL/min; POTASSIUM,K 3.8 mmol/L (3.5-5.1); PROTEIN TOTAL,TP 7.6 g/dL (6.4-8.2)
== END 2025-01-03 11:02 | disposition home or self-care (01) ==
LOC: DL.ED 09:29
DX: L03.116 Cellulitis of left lower limb (principal); Z86.14 Personal history of Methicillin resistant Staphylococcus aureus infection
CPT/HCPCS: 36415; 80053; 83605; 85025; 86140; 96374; 99283; 99284; A9270; J1885